=== PATIENT | female | born 1960 | race Caucasian/White ===

== ENCOUNTER → 2017-03-01 | Outpatient (CLI) | payer MEDICAID ==
[~2017-03-01] MED LIST: BUPROPION HCL100 M1 PO; CETIRIZINE HYDR10 MG OR; HALOPERIDOL5 MG OR; VENLAFAXINE H37.5 M2 PO
[2017-03-01 11:05] LABS: HEMOGLOBIN 12.9 g/dL (12.2-16.2); LYMPH # 1.3 K/mm3 (0.7-4.5); LYMPH % 21.7 % (10-50.0)
[2017-03-01 11:56] LABS: BUN 9 mg/dL (7-18)
[2017-03-01 11:57] LABS: GFR (ESTIMATED) 65 ML/MIN (59-)
--- NOTE | 2017-03-05 20:41 | RADIOLOGY REPORT PS360 ---
DIG MAMM-SCREEN VANESSA W/CAD CAD Screening COMPARISON: Digital mammograms 01/12/2015 and 02/26/2016 INDICATION: There is no personal or family history of breast cancer TECHNIQUE: Standard CC and MLO images were obtained. R2 CAD reviewed. FINDINGS: There is a diffusely dense and heterogenic parenchymal pattern somewhat lessening the sensitivity of mammography. There are few benign-appearing calcination is in each breast as noted previously. There is no suspicious lesion and no suspicious microcalcifications. IMPRESSION: Diffusely dense parenchymal pattern with no suspicious lesion seen recommend yearly follow-up BI-RADS CATEGORY: 2_Benign RECOMMENDED FOLLOWUP: 12M 12 MONTH FOLLOW-UP (A letter has been sent to the patient regarding results of the study.)
== END ==
LOC: RAD 10:00
PROVIDERS: Internal Medicine Adolescent Medicine
DX: Z12.31 Encounter for screening mammogram for malignant neoplasm of breast (principal); E78.5 Hyperlipidemia, unspecified; F31.74 Bipolar disorder, in full remission, most recent episode manic
CPT/HCPCS: G0202